=== PATIENT | male | born 1985 | race Caucasian/White ===

== ENCOUNTER 2019-09-29 08:19 | Emergency (ER) | payer OTHER, SELFPAY ==
--- NOTE | ~2019-09-29 | XR_ITS ---
EXAMINATION: XR chest 2V EXAM DATE: 09/29/2019 08:54 INDICATION: Right chest pain. History pneumothorax. TECHNIQUE: Frontal and lateral projections of the chest obtained and reviewed. Comparison is made to prior examination from 01/07/2016. FINDINGS: The lungs are clear. There are no pleural effusions. The cardiomediastinal silhouette is within normal limits. There is no pneumothorax suspected. The bones and soft tissues are unremarkab le. IMPRESSION: Unremarkable chest x-ray exam. Reviewed, dictated and finalized at location A.
[2019-09-29 08:27] VITALS: BP 145/84; PULSE 87; RESP 18; TEMP 36.6; O2SAT 100
--- NOTE | 2019-09-29 08:34 | ECG_ITS ---
Measurements Intervals [place] Rate: 82 P: 41 KS: 128 QRS: 86 QRSD: 94 T: 47 QT: 357 QTc: 418 Interpretive Statements SINUS RHYTHM NORMAL ECG Electronically Signed On 09-29-2019 8:58:07 CDT by Wing Noyola D.O.
--- NOTE | 2019-09-29 08:38 | ED.GENADULT ---
HPI - General Adult General Chief complaint: Unspecified Stated complaint: right sided pain/hx pneumo Time Seen by Provider: 09/29/19 08:20 History of Present Illness HPI narrative: RIght upper back pain for the past few days. Started with a pop and continuous ever since. Worse with movement. Saw chiropractor without improvement. No SOB. H/o prior pneumothorax so he was concerned that this may be another, although he says that his symptoms are not quite the same. Related Data Allergies Allergy/AdvReac Type Severity Reaction Status Date / Time No Known Allergies Allergy Mild Verified 09/29/19 08:32 Review of Systems Review of Systems: All systems reviewed & are unremarkable except as noted in HPI and below Constitutional: Constitutional: Denies fever(s) Cardiovascular: Cardiovascular: Denies chest pain Respiratory: Respiratory: Denies cough and Denies dyspnea Gastrointestinal: Gastrointestinal: Denies abdominal pain Musculoskeletal: Musculoskeletal: Reports back pain PMFSH Past Medical History Medical History (Updated 09/29/19 @ 11:07 by Dash Mooney MD) Pneumothorax Family History Family History Father Hypertension Other Family history of lung cancer Social History Social History Smoking status: Heavy tobacco smoker Alcohol intake: current Gender identity (if verbalized by the patient): Male Exam Const: General: healthy appearing, no acute distress and alert Orientation/consciousness: patient oriented x3 HENMT: Head: normal to inspection Neck: Neck: normal visual inspection and no lymphadenopathy Chest: Chest palpation & inspection: no tenderness Resp: Effort & Inspection: normal respiratory effort Auscultation: clear to auscultation bilaterally, no rales, no rhonchi and no wheezes Cardio: Jugular venous distension: no JVD Rate: regular rate Rhythm: regular rhythm Heart sounds: no murmurs GI: Inspection: non-distended GI Palp: Yes Soft to palpation and No Tenderness to palpation present (GI) Back/Spine/Pelvis: Other: Right thoracic back tenderness Skin: General skin exam: normal color Neuro: General: patient oriented x3 and moves all extremities Speech: normal speech Extrem: General: no edema Psych: Appearance: well kempt Affect: normal affect Course Vital Signs Vital signs: Vital Signs Temperature 36.6 C 09/29/19 08:27 Pulse Rate 87 09/29/19 08:27 Respiratory Rate 18 09/29/19 08:27 Blood Pressure 145/84 H 09/29/19 08:27 Pulse Oximetry 100 09/29/19 08:27 Temperature 36.6 C 09/29/19 08:27 Pulse Rate 87 09/29/19 08:27 Respiratory Rate 18 09/29/19 08:27 Blood Pressure 145/84 H 09/29/19 08:27 Pulse Oximetry 100 09/29/19 08:27 Medical Decision Making Medical Records Medical records reviewed: Yes I reviewed the patient's medical records. Vital Signs Vital Signs: Vital Signs Temperature 36.6 C 09/29/19 08:27 Pulse Rate 87 09/29/19 08:27 Respiratory Rate 18 09/29/19 08:27 Blood Pressure 145/84 H 09/29/19 08:27 Pulse Oximetry 100 09/29/19 08:27 Temperature 36.6 C 09/29/19 08:27 Pulse Rate 87 09/29/19 08:27 Respiratory Rate 18 09/29/19 08:27 Blood Pressure 145/84 H 09/29/19 08:27 Pulse Oximetry 100 09/29/19 08:27 Imaging Data Radiologist's impression: ITS Impressions Chest X-Ray 09/29/19 08:59 IMPRESSION: Unremarkable chest x-ray exam. Discharge Plan Discharge Clinical Impression: Muscle strain of right upper back Qualifiers: Encounter type: initial encounter Qualified Code(s): S29.012A - Strain of muscle and tendon of back wall of thorax, initial encounter Patient Disposition: Home, Self-Care Condition: Stable Instructions: Thoracic Back Strain (ED) Prescriptions: New cyclobenzaprine 10 mg tablet 10 mg PO TID PRN (Reason:
[2019-09-29] MEDS: CYCLOBENZAPRINE HCL 10 MG TABLET PO (09:16)
[2019-09-29] MEDS: KETOROLAC 30 MG/ML VIAL (*BKC) IV PUSH (09:16)
== END 2019-09-29 09:41 | disposition home or self-care (01) ==
PROVIDERS: Emergency Provider Emergency Medicine
DX: S29.012A Strain of muscle and tendon of back wall of thorax, initial encounter (principal); X50.9XXA Other and unspecified overexertion or strenuous movements or postures, initial encounter
CPT/HCPCS: 71046; 93005; 96374; 99284; A9270; J1885

== ENCOUNTER 2021-11-19 19:57 | Observation (INO) | payer SELFPAY ==
[2021-11-19 20:57] VITALS: BP 138/62; PULSE 86; RESP 18; TEMP 36.6; O2SAT 100
--- NOTE | 2021-11-19 22:29 | ED.WOUNDLAC ---
HPI - Wound/Laceration General Chief Complaint: Wound/Laceration Stated Complaint: spider bite on back Time Seen by Provider: 11/19/21 22:20 Source: patient Mode of arrival: ambulatory Limitations: no limitations History of Present Illness HPI narrative: This is a 36 year old male that presents to the ER for a wound noted on the back over the last week. Reports he has been on Bactrim for the last 3 days with little relief. Reports worsening redness and swelling of the area. Reports he has had some purulent drainage from the area. Denies fever. Related Data Home Medications Medication Instructions Recorded Confirmed No Home Medications 11/20/21 11/20/21 Allergies Allergy/AdvReac Type Severity Reaction Status Date / Time No Known Allergies Allergy Mild Verified 11/19/21 21:02 Review of Systems Review of Systems: CONSTITUTIONAL: Denies fever SKIN: Reports edema and erythema All systems reviewed & are unremarkable except as noted in HPI and below PMFSH Past Medical History Medical History Spontaneous pneumothorax Tobacco use Surgical History Surgical History (Updated 11/20/21 @ 04:21 by Dorothy Beyer PA-C) History of arthroscopic knee surgery History of chest tube placement Family History Family History Father Hypertension Other Family history of lung cancer Social History Social History (Updated 11/20/21 @ 04:21 by Dorothy Beyer PA-C) Social History: Surrogate medical decision maker: Shalonda Banegas, sibling. Code status: Full code. 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 Spiritual care concerns: No Exam Narrative: GENERAL: Well-appearing, well-nourished, and in no acute distress. HEAD: Normocephalic, atraumatic. EYES: EOMI. CHEST: No respiratory distress. HEART: Regular rate BACK: Right upper back with 8cm area of erythema and induration. No notable fluctuance. There is a 2cm area of central necrosis EXTREMITIES: Normal range of motion. No edema. SKIN: Warm, dry, no rash. NEURO: No focal deficits. Alert and oriented x3. PSYCH: Normal mood and affect Course Consultations Consultation #1: Spoke with hospitalist about patient and work-up who accepts admission Date: 11/20/21 Time: 01:28 Vital Signs Vital signs: Vital Signs Temperature 97.9 F 11/19/21 20:57 Pulse Rate 86 11/19/21 20:57 Respiratory Rate 18 11/19/21 20:57 Blood Pressure 138/62 11/19/21 20:57 Pulse Oximetry 100 11/19/21 20:57 Oxygen Delivery Room Air 11/19/21 20:57 Temperature 98.6 F 11/20/21 04:13 Pulse Rate 78 11/20/21 04:13 Respiratory Rate 16 11/20/21 04:13 Blood Pressure 110/50 L 11/20/21 04:13 Pulse Oximetry 100 11/20/21 04:13 Oxygen Delivery Room Air 11/20/21 02:49 Procedures Abscess I/D other: Date of Incision: 11/20/21 Time of Incision: 01:29 Side (if applicable): right Local Anesthetic: lidocaine 2% and with epi Amount of anesthesia used (mL): 3 Technique: incised with #11 blade Packing used?: none I&D Results: Pus, Blood and Other (necrotic tissue) MDM - Wound/Laceration MDM Narrative Medical decision making narrative: Patient presents to the emergency department for an abscess to the right upper back. He is afebrile and nontoxic-appearing. CBC is with leukocytosis to 10.9. Inflammatory markers are elevated. I did do some debridement of the necrotic tissue in the center of the wound. Appears will need a more formal debridement by general surgery. In the meantime patient will be started on IV antibiotics. Spoke with hospitalist about patient and work-up who accepts admission Lab D
[2021-11-19 22:53] LABS: Basophils Absolute Auto 0.1 K/mm3 (0.0-0.1); Basophils Percent Auto 0.5 % (0.2-1.2); Eosinophils Absolute Auto 0.3 K/mm3 (0-0.3); Eosinophils Percent Auto 2.8 % (0-4.4); Hematocrit 40.3 % (42.0-52.0); Hemoglobin 13.6 g/dL (14.0-18.0); Immature Granulocyte Absolute 0.04 K/mm3 (0.00-0.031); Immature Granulocyte Percent A 0.4 % (0-0.5); Lymphocytes Absolute Auto 2.75 K/mm3 (0.9-3.2); Lymphocytes Percent Auto 25.2 % (18.3-44.2); Mean Corpuscular HGB Conc 33.7 g/dl (32-36); Mean Corpuscular Hemoglobin 31.2 pg (26-34); Mean Corpuscular Volume 92.4 fl (80-100); Mean Platelet Volume 9.1 fl (7.4-10.4); Monocytes Percent Auto 9.3 % (2.6-8.5); Neutrophils Absolute Auto 6.8 K/mm3 (1.3-6.7); Neutrophils Percent Auto 61.8 % (45.5-73.1); Platelet Count Result 252 k/mm3 (150-375); Red Blood Count 4.36 M/mm3 (4.6-6.20); Red Cell Distribution Width 12.1 % (11.5-14.5); White Blood Count 10.9 K/mm3 (4.5-10.0)
[2021-11-19 23:04] LABS: Anion Gap 9 mmol/L (8-16); Blood Urea Nitrogen 11 mg/dL (9-20); CRP 6.5 mg/dL (<1.0); Calcium 8.6 mg/dL (8.4-10.2); Carbon Dioxide 28 mmol/L (22-30); Chloride 100 mmol/L (98-107); Estimated CRCL calculation 73 ml/min; Estimated Glomerular Filt Rate > 60; Glucose 129 mg/dL (65-110); Potassium 3.5 mmol/L (3.4-5.0); Sodium 137 mmol/L (137-145)
[2021-11-19 23:26] LABS: Erythrocyte Sedimentation Rate 21 mm/hr (0-20)
[2021-11-20] MEDS: KETOROLAC 30 MG/ML VIAL (*BKC) IM (00:43)
--- NOTE | 2021-11-20 01:13 | PC.NURSE ---
pain reassessment 0 at this time
--- NOTE | 2021-11-20 01:15 | PM.IMHP ---
H&P: HPI History of Present Illness Date/Time: 11/20/21 01:15 Chief Complaint: Wound recheck. Narrative: This is a pleasant 36-year-old smoker who presented to the ED from home for reevaluation of a wound on his upper right back. 8 days ago he noticed a knot on his back with a small black center and he assumes he was bitten by a spider. The area has gotten progressively more painful and swollen he was seen at urgent care on Wednesday where he was prescribed Bactrim. Unfortunately it is not any better and the black spot in the center has increased in size. He has also noticed some purulence drainage coming from the wound. He denies fever, chills, sweats, nausea, and vomiting. No history of MRSA. Review of Systems Review of Systems: Twelve systems were reviewed and are negative except for as per HPI. [facility] Past Medical History Medical History Spontaneous pneumothorax Tobacco use Surgical History Surgical History (Updated 11/20/21 @ 04:21 by Dorothy Beyer PA-C) History of arthroscopic knee surgery History of chest tube placement Family History Family History Father Hypertension Other Family history of lung cancer Social History Social History (Updated 11/20/21 @ 04:21 by Dorothy Beyer PA-C) Social History: Surrogate medical decision maker: Shalonda Banegas, sibling. Code status: Full code. 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 Spiritual care concerns: No Meds Home Medications and Allergies Home Medications Medication Instructions Recorded Confirmed Type No Home Medications 11/20/21 11/20/21 History Allergies Allergy/AdvReac Type Severity Reaction Status Date / Time No Known Allergies Allergy Mild Verified 11/19/21 21:02 Vital Signs Vital Signs - 24 hr 11/19/21 20:57 Temperature 97.9 F Pulse Rate 86 Respiratory Rate 18 Blood Pressure 138/62 Pulse Oximetry 100 Oxygen Delivery Room Air Exam Narrative: General: Well-developed, nontoxic-appearing male. Weight: 72.5 kilograms. BMI: 22.9. HEENT: PERRL, EOMI. Sclera anicteric. Oral mucosa moist. Neck: Supple. Respiratory: Lungs are clear to auscultation bilaterally. Cardiovascular: Regular rate and rhythm with S1-S2. Gastrointestinal: Abdomen is soft, nontender, and nondistended with positive bowel sounds. Skin: Warm and dry. There is an 8 centimeter area of induration and erythema on the right upper back with proximally 2 centimeters of central necrosis. The area is extremely tender to palpation. Superficial, nonviable tissue was debrided in the ED with purulent drainage seeping from around the open, central region where more nonviable tissue was noted. Extremities: No cyanosis, clubbing, or edema. Radial and pedal pulses intact. Neurological: Alert. Cranial nerves 2-12 are grossly intact. No gross focal deficits to casual conversation. Psychiatric: Pleasant and cooperative with normal mood and affect. Judgment and insight intact. H&P: Results Labs Labs: Short CBC 11/19/21 Range/Units 22:44 WBC 10.9 H (4.5-10.0) K/mm3 Hgb 13.6 L (14.0-18.0) g/dL Hct 40.3 L (42.0-52.0) % Plt Count 252 (150-375) k/mm3 BMP 11/19/21 22:44 Sodium 137 Potassium 3.5 Chloride 100 Carbon Dioxide 28 BUN 11 Creatinine 1.30 Glucose 129 H Calcium 8.6 Assessment and Plan Assessment and plan (1) Abscess of upper back excluding scapular region: Code(s): L02.212 - Cutaneous abscess of back [any part, except buttock] Status: Acute Assessment and Plan: The patient is not certain but he thinks he may have had a spider bite in the area. The area continues to worsen
--- NOTE | 2021-11-20 02:15 | PC.NURSE ---
report given to leanne on 3rd med
[2021-11-20 02:17] LABS: Lactic Acid Reflex 0.7 mmol/L (0.7-2.0)
--- NOTE | 2021-11-20 02:53 | PC.NURSE ---
This patient, Suraj Banegas, was admitted to Medical Room 349-01. Patient/family oriented to hospital policies and general routines including ID bracelet, bed and alarms, visiting hours, pain management, procedures, bathroom and other care routines, personal items, smoking policy, room service/diet, and visiting hours. Information on how to activate the Rapid Response Team has been discussed. Patient/Family are encouraged to report perceived risks to care and to ask questions if they do not understand what they are told or what they should do. Dressing to Rt upper back dry and intact. Pt denies pain at this time.
[2021-11-20 04:13] VITALS: BP 110/50; PULSE 78; RESP 16; TEMP 37; O2SAT 100
[2021-11-20] MEDS: HYDROcodone/acetaminophen (*CRX) 5-325 MG TABLET 1 TAB PO ×3 (05:40→20:12)
[2021-11-20 05:48] LABS: Estimated CRCL calculation 73 ml/min; Estimated Glomerular Filt Rate > 60
--- NOTE | 2021-11-20 11:35 | PM.IMPN ---
Progress Note: A&P Assessment and Plan (1) Abscess of upper back excluding scapular region: Code(s): L02.212 - Cutaneous abscess of back [any part, except buttock] Status: Acute Assessment and Plan: continue IV antibiotics, await surgical evaluation (2) Tobacco use: Code(s): Z72.0 - Tobacco use Status: Acute Assessment and Plan: Smoking cessation is encouraged. He declines the need for nicotine patch. Subjective Date/time seen: 11/20/21 11:35 no new complaints Exam Narrative: General: Well-developed, nontoxic-appearing male. Weight: 72.5 kilograms. BMI: 22.9. HEENT: PERRL, EOMI. Sclera anicteric. Oral mucosa moist. Neck: Supple. Respiratory: Lungs are clear to auscultation bilaterally. Cardiovascular: Regular rate and rhythm with S1-S2. Gastrointestinal: Abdomen is soft, nontender, and nondistended with positive bowel sounds. Skin: Warm and dry. There is an 8 centimeter area of induration and erythema on the right upper back with proximally 2 centimeters of central necrosis. The area is extremely tender to palpation. Superficial, nonviable tissue was debrided in the ED with purulent drainage seeping from around the open, central region where more nonviable tissue was noted. Extremities: No cyanosis, clubbing, or edema. Radial and pedal pulses intact. Neurological: Alert. Cranial nerves 2-12 are grossly intact. No gross focal deficits to casual conversation. Psychiatric: Pleasant and cooperative with normal mood and affect. Judgment and insight intact. Objective Data Vital Signs Vital Signs: Vital Signs - 24 hr 11/19/21 20:57 11/20/21 02:49 11/20/21 04:13 Temperature 97.9 F 98.6 F Pulse Rate 86 78 Respiratory Rate 18 16 Blood Pressure 138/62 110/50 L Pulse Oximetry 100 100 Oxygen Delivery Room Air Room Air Intake/Output Intake/Output: Intake & Output 11/17/21 11/18/21 11/19/21 11/20/21 23:59 23:59 23:59 23:59 Intake Total 350 Balance 350 Meds/Results Medications: Active Medications Generic Name Dose Route Start Last Admin Trade Name Freq PRN Reason Stop Dose Admin Acetaminophen 650 mg 11/20/21 04:33 Acetaminophen 325 Mg Tablet PO Q6H PRN Mild Pain (1-3) or Fever Hydrocodone Bitart/Acetaminophen 1 tab 11/20/21 04:33 11/20/21 05:40 Hydrocodone/Acetaminophen (*Crx) 5-325 Mg Tablet PO 1 tab Q6H PRN Administration Pain Rated 4-6 Cefazolin Sodium 1 gm in 50 mls @ 100 mls/hr 11/20/21 10:00 11/20/21 09:37 Ancef 1 Gm/D5w 50 Ml Pm IVPB Infused Q8H JEIMY Infusion Vancomycin HCl 1,000 mg in 250 mls @ 250 mls/hr 11/20/21 20:00 Vancomycin 1,000 Mg/D5w 250 Ml IVPB Q18H JEIMY Labs Labs: Laboratory Results - last 24 hr 11/19/21 11/19/21 11/20/21 22:44 22:44 01:59 WBC 10.9 H RBC 4.36 L Hgb 13.6 L Hct 40.3 L MCV 92.4 MCH 31.2 MCHC 33.7 RDW 12.1 Plt Count 252 MPV 9.1 Immature Gran % (Auto) 0.4 Neut % (Auto) 61.8 Lymph % (Auto) 25.2 [place] % (Auto) 9.3 H Eos % (Auto) 2.8 Baso % (Auto) 0.5 Lymph # (Auto) 2.75 [place] # (Auto) 1.0 H Eos # (Auto) 0.3 Baso # (Auto) 0.1 Abs Immat Gran (auto) 0.04 H Absolute Neuts (auto) 6.8 H Absolute Nucleated RBC 0.0 Nucleated RBC % 0.0 ESR 21 H Sodium 137 Potassium 3.5 Chloride 100 Carbon Dioxide 28 Anion Gap 9 BUN 11 Creatinine 1.30 Estim Creat Clear Calc 73 Estimated GFR > 60 Glucose 129 H Lactic Acid 0.7 Calcium 8.6 C-Reactive Protein 6.5 H 11/20/21 05:28 WBC RBC Hgb Hct MCV MCH MCHC RDW Plt Count MPV Immature Gran % (Auto) Neut % (Auto) Lymph % (Auto) [place] % (Auto) Eos % (Auto) Baso % (Auto) Lymph # (Auto) [place] # (Auto) Eos # (Auto) Baso # (Auto) Abs Immat Gran (auto) Absolute Neuts (auto) Absolute Nucleated RBC Nucleated RBC % ESR Sodium Potassium Chloride C
--- NOTE | 2021-11-20 12:21 | PM.CNGS ---
Assessment and Plan Assessment and plan (1) Abscess of upper back excluding scapular region: Code(s): L02.212 - Cutaneous abscess of back [any part, except buttock] Status: Acute Assessment and Plan: Back abscess s/p I&D in the ER with findings of necrotic tissue and now with an open wound. There is some yellow slough in the wound bed. Wound cultures are pending. Will initiate local wound care with Santyl dressing changes for enzymatic debridement. No purulent drainage or evidence of residual abscess. No indication for surgical intervention at this time. Will allow the patient a regular diet. Continue with IV antibiotics. Will continue to monitor. (2) Tobacco use: Code(s): Z72.0 - Tobacco use Status: Acute Assessment and Plan: Discussed the importance and strongly recommended cessation. Plan I have discussed the patient's case and plan of care with Dr. Wiley. Thank you for allowing us to see the patient in consultation and we will continue to follow along with you. History of Present Illness Consult details Consult date: 11/20/21 Reason for consult: other (Necrotic back wound) Requesting physician: Sheron Padgett PA-C Narrative: This is a 36-year-old man who presented to the ER yesterday with complaints of redness and swelling to his upper back. He reports noticing a small bump on his upper right back 9 days ago. This area became painful, swollen, and red over the next few days. He presented to the [facility] at [place] for evaluation 3 days ago. They prescribed him Bactrim, which he reportedly took as prescribed. Unfortunately, he did not see any improvement and actually felt it got more swollen and painful over the next few days. Therefore, he came into the ER for evaluation last night. The ER provider performed an I&D of a back abscess. Wound cultures were obtained. There was findings of necrotic tissue with now an open wound. The patient was admitted and started on IV cefazolin and vancomycin. Our service has been consulted for the necrotic back wound. He is now seen on the medical floor. He feels the pain has improved following I&D. He has reportedly witnessed brown recluse spiders in his home and believes he may have gotten a spider bite in this area, but is unsure. No history of MRSA infection. He is a current every day smoker. Review of Systems Review of Systems: All systems reviewed & are unremarkable except as noted in HPI and below Constitutional: Constitutional: Reports no additional constitutional complaints, Reports chills (at night), Denies fever(s), Denies lethargy and Denies poor appetite Gastrointestinal: Gastrointestinal: Reports no additional gastrointestinal complaints, Denies abdominal pain, Denies nausea and Denies vomiting Integumentary/Breasts: Skin/Breast: Reports system reviewed and no additional complaints, except as docu PMFSH Past Medical History Medical History Spontaneous pneumothorax Tobacco use Surgical History Surgical History History of arthroscopic knee surgery History of chest tube placement Family History Family History Father Hypertension Other Family history of lung cancer Social History Social History Social History: Surrogate medical decision maker: Shalonda Bassam, sibling. Code status: Full code. Smoking packs per day: 0.5 Smoking cigarettes per day: 10.0 Years smoked: 20 Smoking pack-years: 10.00 Smoking status: Current every day smoker Tobacco type: cigarettes Alcohol intake: never Substance use: former Additional occupation/education comments: [employer]. Spiritual care concerns: No Meds Home Medications and Allergies Home Medications Medication Instructions Recorded Confirmed Type No Home Medications 11/20/21 11/20/21 Co
--- NOTE | 2021-11-20 12:37 | PC.NURSE ---
On 11/20/21, the student, Sania Kamara, provided care and completed [facility] documentation on this patient. I have reviewed the student's documentation and agree with the findings.
[2021-11-20 14:00] VITALS: BP 100/46; PULSE 80; RESP 18; TEMP 37.4; O2SAT 99
[2021-11-20] MEDS: COLLAGENASE OINT 30 GM TUBE 1 APPLIC TOPICAL (17:37)
[2021-11-20 20:00] VITALS: PULSE 80; RESP 18; O2SAT 99
[2021-11-20 22:00] VITALS: BP 113/67; PULSE 73; RESP 16; TEMP 36.8; O2SAT 100
[2021-11-21] MEDS: HYDROcodone/acetaminophen (*CRX) 5-325 MG TABLET 1 TAB PO ×3 (05:46→20:18)
[2021-11-21 06:00] VITALS: BP 102/54; PULSE 80; RESP 16; TEMP 36.9; O2SAT 99
--- NOTE | 2021-11-21 10:01 | PM.IMPN ---
Progress Note: A&P Assessment and Plan (1) Abscess of upper back excluding scapular region: Code(s): L02.212 - Cutaneous abscess of back [any part, except buttock] Status: Acute Assessment and Plan: continue IV antibiotics, await surgical evaluation will add cultures grew 1 more day (2) Tobacco use: Code(s): Z72.0 - Tobacco use Status: Acute Assessment and Plan: Smoking cessation is encouraged. He declines the need for nicotine patch. Subjective Date/time seen: 11/21/21 10:01 no complaints Exam Narrative: General: Well-developed, nontoxic-appearing male. Weight: 72.5 kilograms. BMI: 22.9. HEENT: PERRL, EOMI. Sclera anicteric. Oral mucosa moist. Neck: Supple. Respiratory: Lungs are clear to auscultation bilaterally. Cardiovascular: Regular rate and rhythm with S1-S2. Gastrointestinal: Abdomen is soft, nontender, and nondistended with positive bowel sounds. Skin: Warm and dry. There is an 8 centimeter area of induration and erythema on the right upper back with proximally 2 centimeters of central necrosis. The area is extremely tender to palpation. Superficial, nonviable tissue was debrided in the ED with purulent drainage seeping from around the open, central region where more nonviable tissue was noted. Extremities: No cyanosis, clubbing, or edema. Radial and pedal pulses intact. Neurological: Alert. Cranial nerves 2-12 are grossly intact. No gross focal deficits to casual conversation. Psychiatric: Pleasant and cooperative with normal mood and affect. Judgment and insight intact. Objective Data Vital Signs Vital Signs: Vital Signs - 24 hr 11/20/21 14:00 11/20/21 20:00 11/20/21 22:00 Temperature 99.3 F 98.2 F Pulse Rate 80 80 73 Respiratory Rate 18 18 16 Blood Pressure 100/46 L 113/67 Pulse Oximetry 99 99 100 Oxygen Delivery Room Air 11/21/21 06:00 Temperature 98.4 F Pulse Rate 80 Respiratory Rate 16 Blood Pressure 102/54 L Pulse Oximetry 99 Oxygen Delivery Intake/Output Intake/Output: Intake & Output 11/18/21 11/19/21 11/20/21 11/21/21 23:59 23:59 23:59 23:59 Intake Total 1860 50 Balance 1860 50 Meds/Results Medications: Active Medications Generic Name Dose Route Start Last Admin Trade Name Freq PRN Reason Stop Dose Admin Acetaminophen 650 mg 11/20/21 04:33 Acetaminophen 325 Mg Tablet PO Q6H PRN Mild Pain (1-3) or Fever Hydrocodone Bitart/Acetaminophen 1 tab 11/20/21 04:33 11/21/21 05:46 Hydrocodone/Acetaminophen (*Crx) 5-325 Mg Tablet PO 1 tab Q6H PRN Administration Pain Rated 4-6 Collagenase 1 applic 11/20/21 12:25 11/20/21 17:37 Collagenase Oint 30 Gm Tube TOPICAL 1 applic DAILY JEIMY Administration Cefazolin Sodium 1 gm in 50 mls @ 100 mls/hr 11/20/21 10:00 11/21/21 01:35 Ancef 1 Gm/D5w 50 Ml Pm IVPB Infused Q8H JEIMY Infusion Vancomycin HCl 1,000 mg in 250 mls @ 250 mls/hr 11/20/21 20:00 11/20/21 21:15 Vancomycin 1,000 Mg/D5w 250 Ml IVPB Infused Q18H JEIMY Infusion
[2021-11-21] MEDS: COLLAGENASE OINT 30 GM TUBE 1 APPLIC TOPICAL (10:19)
--- NOTE | 2021-11-21 12:26 | PM.PNGS ---
Progress Note: A&P Assessment and Plan (1) Abscess of upper back excluding scapular region: Code(s): L02.212 - Cutaneous abscess of back [any part, except buttock] Status: Acute Assessment and Plan: Quite a bit of drainage. Will change to dry gauze dressing to wound 3 times a day with Medipore tape. Candelariayl will work when drainage is decreased. Wound is improving. Can be followed as an outpatient. Although sensitivities are not back, could empirically treat with clindamycin or Bactrim and discharged today from my perspective. I can see him in the office in 1-2 weeks in follow-up. (2) History of insect bite: Code(s): Z87.828 - Personal history of other (healed) physical injury and trauma Status: Acute Assessment and Plan: Suspected spider bite as the cause of the right upper back infection and abscess Subjective Subjective Date/Time Seen: 11/21/21 12:26 Patient reports: no new complaints, feels better and afebrile Review of Systems Review of Systems: All systems reviewed & are unremarkable except as noted in HPI and below (HPI and those items noted below) Constitutional: Constitutional: Denies chills and Denies fever(s) Cardiovascular: Cardiovascular: Denies chest pain, Denies diaphoresis, Denies dyspnea and Denies paroxysmal nocturnal dyspnea Respiratory: Respiratory: Denies chest congestion, Denies cough and Denies dyspnea Exam Const: General: healthy appearing, comfortable, alert and awake Nutritional Appearance: average body habitus Skin: Wounds: wounds noted (R upper back with increased drainage, slough, still raised reddened medial) Objective Data Vital Signs Vital Signs: Vital Signs - 24 hr 11/20/21 14:00 11/20/21 20:00 11/20/21 22:00 Temperature 37.4 C 36.8 C Pulse Rate 80 80 73 Respiratory Rate 18 18 16 Blood Pressure 100/46 L 113/67 Pulse Oximetry 99 99 100 Oxygen Delivery Room Air 11/21/21 06:00 Temperature 36.9 C Pulse Rate 80 Respiratory Rate 16 Blood Pressure 102/54 L Pulse Oximetry 99 Oxygen Delivery Intake/Output Intake/Output: Intake & Output 11/18/21 11/19/21 11/20/21 11/21/21 23:59 23:59 23:59 23:59 Intake Total 1860 50 Balance 1860 50 Meds/Results Medications: Active Medications Generic Name Dose Route Start Last Admin Trade Name Freq PRN Reason Stop Dose Admin Acetaminophen 650 mg 11/20/21 04:33 Acetaminophen 325 Mg Tablet PO Q6H PRN Mild Pain (1-3) or Fever Hydrocodone Bitart/Acetaminophen 1 tab 11/20/21 04:33 11/21/21 05:46 Hydrocodone/Acetaminophen (*Crx) 5-325 Mg Tablet PO 1 tab Q6H PRN Administration Pain Rated 4-6 Collagenase 1 applic 11/20/21 12:25 11/21/21 10:19 Collagenase Oint 30 Gm Tube TOPICAL 1 applic DAILY JEIMY Administration Cefazolin Sodium 1 gm in 50 mls @ 100 mls/hr 11/20/21 10:00 11/21/21 10:18 Ancef 1 Gm/D5w 50 Ml Pm IVPB 100 mls/hr Q8H JEIMY Administration Vancomycin HCl 1,000 mg in 250 mls @ 250 mls/hr 11/20/21 20:00 11/20/21 21:15 Vancomycin 1,000 Mg/D5w 250 Ml IVPB Infused Q18H JEIMY Infusion Labs Labs: Culture of back wound shows Staph aureus, sensitivities pending
[2021-11-21 14:00] VITALS: BP 106/58; PULSE 77; RESP 20; TEMP 36.7; O2SAT 99
[2021-11-21] MEDS: ACETAMINOPHEN 325 MG TABLET 650 MG PO (14:38)
[2021-11-21 22:00] VITALS: BP 117/57; PULSE 73; RESP 16; TEMP 36.9; O2SAT 100
[2021-11-22 06:00] VITALS: BP 102/50; PULSE 66; RESP 16; TEMP 36.9; O2SAT 100
[2021-11-22] MEDS: HYDROcodone/acetaminophen (*CRX) 5-325 MG TABLET 1 TAB PO (06:43)
[2021-11-22 07:44] LABS: Vancomycin Trough < 5.0 ug/mL (10.0-20.0)
--- NOTE | 2021-11-22 10:20 | PM.DS ---
DS: Admitting Diagnosis Discharge Date November 22, 2021 Admitting Diagnosis back abscess DS: Discharge Diagnosis Discharge Diagnosis (1) Abscess of upper back excluding scapular region: Code(s): L02.212 - Cutaneous abscess of back [any part, except buttock] Status: Acute Assessment and Plan: continue IV antibiotics, await surgical evaluation will add cultures grew 1 more day (2) Tobacco use: Code(s): Z72.0 - Tobacco use Status: Acute Assessment and Plan: Smoking cessation is encouraged. He declines the need for nicotine patch. DS: Summary Hospital Course Hospital Course: patient was admitted for back abscess and cellulitis. I and D in the ER. Cultures were negative to date. Surgery evaluated the patient said he can go home on Bactrim for clindamycin. Clindamycin was prescribed. Follow-up with surgery Time Spent with Patient Time attestation: Total time spent providing and/or coordinating discharge services: Exam Narrative: General: Well-developed, nontoxic-appearing male. Weight: 72.5 kilograms. BMI: 22.9. HEENT: PERRL, EOMI. Sclera anicteric. Oral mucosa moist. Neck: Supple. Respiratory: Lungs are clear to auscultation bilaterally. Cardiovascular: Regular rate and rhythm with S1-S2. Gastrointestinal: Abdomen is soft, nontender, and nondistended with positive bowel sounds. Skin: Warm and dry. There is an 8 centimeter area of induration and erythema on the right upper back with proximally 2 centimeters of central necrosis. The area is extremely tender to palpation. Superficial, nonviable tissue was debrided in the ED with purulent drainage seeping from around the open, central region where more nonviable tissue was noted. Extremities: No cyanosis, clubbing, or edema. Radial and pedal pulses intact. Neurological: Alert. Cranial nerves 2-12 are grossly intact. No gross focal deficits to casual conversation. Psychiatric: Pleasant and cooperative with normal mood and affect. Judgment and insight intact. DS: Data Data Completed and Pending Labs on day of discharge: Labs from last 24 hours 11/22/21 06:50 Vancomycin Trough < 5.0 L Preliminary micro results at discharge 11/19/21 22:44 Wound Culture - Preliminary Abscess Staphylococcus aureus 11/20/21 01:59 Blood Culture - Preliminary Blood 11/20/21 01:59 Blood Culture - Preliminary Blood Discharge Plan Discharge Attending physician on discharge: Macario Zhao Consulting providers: Maciej Wiley ; Sheron Padgett Discharging Clinician: Macario Zhao Patient Disposition: Home, Self-Care Activity: may shower and no preference Diet: as tolerated Wound Care Instructions: keep dressing dry, remove dressing to shower and other - see discharge instructions Discharge Instructions: Dry gauze dressing to open area of right upper back. Change at least twice or 3 times a day. Remove dressing to shower. Replace after See Dr. Wiley in follow-up in 1-2 weeks for continued wound management. Patient Instructions: Antibiotic Form, How to Stop Smoking (DC) Stand Alone Forms: General Discharge Information Follow-up/Referrals: Maciej Wiley MD [Physician] - 1 Week (Call Dr. Knight office for appointment. Follow up in 1-2 weeks.) Discharge Medications: New clindamycin HCl 300 mg capsule 300 mg PO Q6H 10 Days Qty: 40 0RF No Action No Home Medications Date of admission: 11/20/21 01:24 Primary Care Provider: PHYSICIAN,TELECOM SPECIALIST Admitting Provider: Braulio Najera Attending physician on admission: Braulio Najera Condition: Stable
== END 2021-11-22 11:45 | disposition home or self-care (01) ==
LOC: ANHED 11-20 01:31 → ANH3MED 11-20 02:01
PROVIDERS: Physician Assistant; Admitting Provider Internal Medicine; Emergency Provider General Practice; Visit Provider Chiropractor
DX: L02.212 Cutaneous abscess of back [any part, except buttock and flank] (principal); S20.461A Insect bite (nonvenomous) of right back wall of thorax, initial encounter; W57.XXXA Bitten or stung by nonvenomous insect and other nonvenomous arthropods, initial encounter; F17.210 Nicotine dependence, cigarettes, uncomplicated
CPT/HCPCS: 10060; 36415; 80048; 80202; 82565; 83605; 85025; 85652; 86140; 87040; 87070; 87147; 87181; 87186; 87205; 96365; 96366; 96367; 96372; 96375; 99285; A9270; G0378; J0690; J1885; J3370

== ENCOUNTER 2022-08-19 14:35 | Emergency (ER) | payer OTHER, SELFPAY ==
--- NOTE | ~2022-08-19 | US_ITS ---
US scrotum doppler INDICATION: Left testicular pain. TECHNIQUE: Testicular sonogram utilizing grayscale and color Doppler FINDINGS: The testes are normal in size and appearance. No focal lesions are seen. The right testes measures 4.3 x 2.4 x 2.9 cm centimeters, and the left testis measures 4.5 x 2.6 x 2.8 cm cm. There is normal vascular flow to both testes. The right and left epididymides appear normal. There are small bilateral hydroceles. There are bilateral varicoceles. IMPRESSION: 1. Small bilateral hydroceles. 2: Bilateral varicoceles. Reviewed, dictated and finalized at location []
[2022-08-19 14:36] VITALS: BP 130/66; PULSE 87; RESP 16; TEMP 36.6; O2SAT 98
[2022-08-19 14:54] LABS: Appearance Urine Clear (Clear); Bilirubin Urine Negative (Negative); Blood Urine Negative (Negative); Color Urine Yellow (Yellow); Glucose Urine UA Negative (Negative); Ketones Urine Negative (Negative); Leukocyte Esterase Ur Negative LEU/UL (Negative); Nitrate Urine Negative (Negative); Protein Urine Negative (Negative); Specific Grav Ur 1.007 (1.001-1.035); Urobilinogen Urine 0.2 mg/dL (<2.0); pH Urine 6.5 (5.0-9.0)
[2022-08-19 15:02] LABS: Add Urine Microscopic? NO
--- NOTE | 2022-08-19 15:30 | ED.MALEGU ---
HPI - Male Genitourinary General Chief complaint: Urogenital-Male Stated complaint: scrotum pain Time Seen by Provider: 08/19/22 14:44 History of Present Illness HPI Narrative: 37-year-old male here for evaluation of left testicular pain x4 hours. Patient states that he has intermittent stabbing sensation that comes without warning. It hurts to touch the area. He denies any dysuria, urgency or burning, penile discharge or rashes. He has no concerns for STIs. There is no nausea, vomiting, upper abdominal pain, diarrhea or constipation. He saw urologist 3 weeks ago for a mass that he felt in his right testicle, the ultrasound revealed a benign-appearing cyst. He denies any pain at that time. Related Data Allergies Allergy/AdvReac Type Severity Reaction Status Date / Time No Known Allergies Allergy Mild Verified 08/19/22 14:45 Review of Systems Review of Systems: Gen: Denies fevers or chills Eyes: Denies eye pain or visual change ENT: Denies congestion Respiratory: Denies shortness of breath or cough CV: Denies chest pain or palpitations GI: Denies abdominal pain nausea, emesis or diarrhea reports testicular pain Musculoskeletal: Denies back pain or muscle pain Neuro: Denies numbness, tingling, weakness or focal weakness Skin: Denies rash Except as documented, all other systems reviewed and negative [facility] Past Medical History Medical History Spontaneous pneumothorax Tobacco use Surgical History Surgical History History of arthroscopic knee surgery History of chest tube placement Family History Family History Father Hypertension Other Family history of lung cancer Social History Social History Social History: Surrogate medical decision maker: Shalonda Banegas, sibling. Code status: Full code. 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 Spiritual care concerns: No Exam Narrative: APPEARANCE: No acute distress, nontoxic, resting in bed EYES: EOMI HEENT: Normocephalic, atraumatic, OMM RESPIRATORY: No respiratory distress Clear to auscultation bilaterally with no rhonchi wheezing or rales. CARDIOVASCULAR: Regular rate and rhythm without murmurs rubs or gallops. ABDOMINAL: Soft, nontender, nondistended, no rebound or guarding : There is no rash to the scrotum or penis. The right testicle is nontender to palpation and is smooth. The left testicle is nontender to palpation and is smooth as well. No penile discharge noted. MUSCULOSKELETAl: Moves all extremities. No clubbing, cyanosis or edema. NEURO: Awake and alert. Following commands, speech normal, no focal deficits SKIN:: Warm, dry. No rashes lesions or abrasions PSYCHIATRIC: Normal affect/mood, Course Vital Signs Vital signs: Vital Signs Temperature 97.9 F 08/19/22 14:36 Pulse Rate 87 08/19/22 14:36 Respiratory Rate 16 08/19/22 14:36 Blood Pressure 130/66 08/19/22 14:36 Pulse Oximetry 98 08/19/22 14:36 Oxygen Delivery Room Air 08/19/22 14:36 Temperature 97.9 F 08/19/22 14:36 Pulse Rate 70 08/19/22 15:46 Respiratory Rate 16 08/19/22 15:46 Blood Pressure 130/66 08/19/22 14:36 Pulse Oximetry 98 08/19/22 15:46 Oxygen Delivery Room Air 08/19/22 14:36 MDM - Male Genitourinary MDM Narrative Medical decision making narrative: 37-year-old male here for evaluation of testicular pain x1 day. No obvious abnormalities on examination, ultrasound does reveal bilateral cyst and varicoceles which likely explains his pain. No evidence of torsion. Urinalysis is unremarkable. He has
[2022-08-19] MEDS: KETOROLAC 30 MG/ML VIAL (*BKC) IM (15:45)
[2022-08-19 15:46] VITALS: PULSE 70; RESP 16; O2SAT 98
== END 2022-08-19 15:50 | disposition home or self-care (01) ==
PROVIDERS: Emergency Provider Physician Assistant
DX: I86.1 Scrotal varices (principal); F17.210 Nicotine dependence, cigarettes, uncomplicated
CPT/HCPCS: 76870; 81003; 93976; 96372; 99284; J1885

== ENCOUNTER 2023-06-14 12:18 | Outpatient (CLI) | payer OTHER, SELFPAY ==
--- NOTE | ~2023-06-14 | MR_ITS ---
MRI of the cervical spine Clinical History: Neck pain Technique: Axial T2-weighted and gradient images, and sagittal T1-weighted, T2-weighted, and STIR chrissy ges were acquired. Findings: There is no fracture or sublocation of the cervical spine. Vertebral bodies maintain normal height and alignment. No bone marrow signal abnormality seen. At C2-C3, there is no disc bulge or herniation. No spinal canal stenosis, cord compression, or neural foraminal narrowing. At C3-C4, there is minimal disc bulge. No spinal canal stenosis, cord compression, or neural foramina l narrowing. At C4-C5, there is no disc bulge or herniation. No spinal canal stenosis, cord compression, or neural foraminal narrowing. At C5-C6, there is minimal disc osteophyte complex at the left paracentral region. No spinal canal st enosis, cord compression, or neural foraminal narrowing. At C6-C7, there is disc osteophyte complex which mildly flattens left side of the cord ventrally. Susanna ral foramina are preserved. Paravertebral soft tissues are unremarkable. Impression: Mild cord flattening ventrally at C6-C7 related to left paracentral disc osteophyte complex. Additional minimal degenerative changes, as above. Reviewed, dictated and finalized at location . Impression: Mild cord flattening ventrally at C6-C7 related to left paracentral disc osteop hyte complex. Additional minimal degenerative changes, as above.
== END 2023-06-14 12:19 ==
PROVIDERS: PCP Physician Assistant; Visit Provider Physician Assistant
DX: M50.123 Cervical disc disorder at C6-C7 level with radiculopathy (principal); M62.838 Other muscle spasm; G89.29 Other chronic pain; M25.512 Pain in left shoulder
CPT/HCPCS: 72141

== ENCOUNTER 2023-10-05 14:35 | Emergency (ER) | payer OTHER, SELFPAY ==
[2023-10-05 14:43] VITALS: BP 119/63; PULSE 87; RESP 20; TEMP 37; O2SAT 100
--- NOTE | 2023-10-05 15:32 | ED.URI ---
HPI - URI/Sore Throat General Chief Complaint: Upper Respiratory Infection Stated Complaint: sinus infection Time Seen by Provider: 10/05/23 15:30 Source: patient, RN notes reviewed and old records reviewed Mode of arrival: ambulatory Limitations: no limitations History of Present Illness HPI Narrative: 38 year old male with 2 week duration of sinus congestion, drainage, head pounding with no known fevers. Patient reports that he has been using Sinex nasal spray, some Afrin spray and also some Ibuprofen for his discomfort. He reports that his nose is sore feels congested and has some sores inside his nose. Patient reports facial pressure temporal and frontal headaches, denies any know fevers, chills or sweats.Patient reports recent airplane travel and states that son has been ill also. MD elicited complaint: rhinorrhea, nasal congestion, sinus pain and other (headache) Onset (ago): week(s) (2) Consistency: constant Severity: moderate Pain scale (0-10): 6 Description of mucous: clear Able to tolerate fluids by mouth: Yes Treatments prior to arrival: ibuprofen and other (sinex nasal spray and some Afrin) Related Data Allergies Allergy/AdvReac Type Severity Reaction Status Date / Time No Known Allergies Allergy Mild Verified 10/05/23 14:51 Review of Systems Review of Systems: CONSTITUTIONAL: Denies malaise, chills, sweats, or fever. EYES: Denies visual changes, redness, or discharge. ENT: Reports rhinorrhea, congestion, sinus pain,no otalgia and no sore throat. CARDIOVASCULAR: Denies chest pain, palpitations, or edema. RESPIRATORY: Reports no acute cough.? Denies dyspnea. GASTROINTESTINAL: Denies abdominal pain, nausea, vomiting, diarrhea SKIN: Denies rash or itching. MUSCULOSKELETAL: Denies myalgia. NEUROLOGIC:reports headache. All systems reviewed & are unremarkable except as noted in HPI and below PMFSH Past Medical History Medical History Abscess of upper back excluding scapular region suspected spider bite Spontaneous pneumothorax Tobacco use Surgical History Surgical History (Updated 10/06/23 @ 13:47 by Dinora Chatterjee NP) History of arthroscopic knee surgery bilateral knees History of chest tube placement Family History Family History Father Hypertension Other Family history of lung cancer Social History Social History (Updated 10/06/23 @ 13:35 by Dinora Chatterjee NP) Social History: Surrogate medical decision maker: Shalonda Banegas, sibling. Code status: Full code. 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 Gender identity (if verbalized by the patient): Male Spiritual care concerns: No Comments At time of signature, agree with nursing past medical, surgical, social and family history. There is no relevant family history pertinent to the presenting complaint Exam Narrative: GENERAL: Well-appearing, well-nourished, and in no acute distress. HEAD: Normocephalic EYES: PERRLA, conjunctivae clear ENT: Nares red with some crusting, turbinates edematous and erythematous, clear discharge, facial pressure and headaches. Mucous membranes moist. TM pearly garcia with dull light reflex bilaterally; no tragal tenderness. Oropharynx erythematous without lesions. Tonsils not enlarged and without exudate, no drooling, no hoarseness, no trismus, uvula midline.post nasal drainage NECK: Supple. No lymphadenopathy CHEST: Clear to auscultation, breath sounds equal. No wheezing, rhonchi, rales, or stridor. No respiratory distress, speaks in full sentences.SAO2 100% on room air HEART: Regular rate and rhythm. N
== END 2023-10-05 15:45 | disposition home or self-care (01) ==
PROVIDERS: Emergency Provider Registered Nurse
DX: J01.40 Acute pansinusitis, unspecified (principal); F17.290 Nicotine dependence, other tobacco product, uncomplicated
CPT/HCPCS: 99213; G0463